=== PATIENT | male | born 1980 | race Caucasian/White ===

== ENCOUNTER 2022-07-08 15:09 | Emergency (ER) | payer MEDICAID ==
[~2022-07-08] VITALS: Ht 177.8 cm; Wt 110.0 kg
[2022-07-08] MEDS ORDERED: METF-874 PO (15:27)
[2022-07-08 15:35] VITALS: BP 148/85
[2022-07-08] MEDS ORDERED: LIDOCAINE 5% PATCH TOP ONE (18:30)
[2022-07-08] MEDS ORDERED: ACETAMINOPHEN 325MG TABLET PO ONE (18:30)
[2022-07-08] MEDS ORDERED: LIDO700A15 TP (19:30)
[2022-07-08] MEDS ORDERED: BACL-141 MT (19:30)
[2022-07-08] MEDS ORDERED: ACET-2708 MT (19:30)
[2022-07-08] MEDS ORDERED: METF-416 MT (20:06)
== END 2022-07-08 20:11 | disposition home or self-care (01) ==
LOC: ER 15:18
DX: M54.2 Cervicalgia (principal); R20.0 Anesthesia of skin; R03.0 Elevated blood-pressure reading, without diagnosis of hypertension; E11.9 Type 2 diabetes mellitus without complications; Z76.0 Encounter for issue of repeat prescription; Z79.84 Long term (current) use of oral hypoglycemic drugs
CPT/HCPCS: 82962; 99284